=== PATIENT | female | born 1945 | race Caucasian/White ===

== ENCOUNTER 2018-08-15 08:14 | Outpatient (CLI) | payer MEDICARE, OTHER ==
--- NOTE | 2018-08-15 11:39 | ULT ---
RIGHT BREAST ULTRASOUND LIMITED: HISTORY: Followup evaluation from prior outside examination dated 02/09/2018. FINDINGS: There is a stable 0.5 cm diameter cyst in the 9 o'clock aspect of the right breast 6 cm from the nipp le corresponding to the mammographic finding as well as the prior ultrasound finding. In the 4 o'clock position of the right breast, 1 cm from the nipple, there is a thin oval cyst measur ing 0.1 x 0.3 x 0.5 cm which appears to correspond to the prior outside examination as well as the ma mmographic finding. IMPRESSION: BIRADS category 3, probably benign findings. Followup bilateral mammogram in 6 months is recommended . Stable mammographic and ultrasound findings when compared to outside prior examination 01/10/2018. POS: OFF
== END 2018-08-15 08:15 | disposition home or self-care (01) ==
LOC: BICMAMMO 08:14
PROVIDERS: ATTEND Family Medicine
DX: R92.8 Other abnormal and inconclusive findings on diagnostic imaging of breast (principal); N63.13 Unspecified lump in the right breast, lower outer quadrant; N63.14 Unspecified lump in the right breast, lower inner quadrant
CPT/HCPCS: 76642; 77065; G0279